=== PATIENT | male | born 2005 | race Caucasian/White ===

== ENCOUNTER 2025-04-02 20:57 | Emergency (ER) | payer OTHER ==
[~2025-04-02] VITALS: Ht 182.9 cm; Wt 75.0 kg
[2025-04-02 21:00] VITALS: PULSE 64; RESP 20; O2SAT 98
[2025-04-02 21:05] VITALS: TEMP 98.5
--- NOTE | 2025-04-02 21:22 | ED.PDOC ---
History of Present Illness HPI Comments 19 year old [employer] male was flown in for the c/c of a Head Injury w/ associated N/ and Photophobia. [employer] Medic states that pt was in the back of a humvee, and upon standing, pt hit the occipital region of his head. Pt is A&Ox4 and notes on weaning full combat gear, including a Helmet. No other associated symptoms, modifiers, recent injuries or sick contacts present at this time. Chief Complaint: Head Injury Time Seen by MD: 21:18 Reviewed Notes: Nurses Notes, Alterations Supervisor Notes, Medications, Allergies Allergies: Coded Allergies: Amoxicillin (Verified Allergy, Unknown, 04/02/25) Information Source: Patient, Emergency Med Personnel Mode of Arrival: EMS Severity: Moderate Timing: Hours Duration: Since onset, Hours Prehospital treatment: 12 Lead EKG, [employer], IVF Past Medical History PAST MEDICAL HISTORY: Denies Surgical History: Denies all surgeries Family History Family History: Unknown Social History Smoker: Non-Smoker Alcohol: Denies ETOH Use Drugs: Denies Drug Use Lives In: Home Constitutional: denies: chills, diaphoresis, fatigue, fever, malaise, sweats, weakness, others EENTM: denies: blurred vision, double vision, ear bleeding, ear discharge, ear drainage, ear pain, ear ringing, eye pain, eye redness, hearing loss, mouth pain, mouth swelling, nasal discharge, nose bleeding, nose congestion, nose pain, photophobia, tearing, throat pain, throat swelling, voice changes, others Respiratory: denies: cough, hemoptysis, orthopnea, SOB at rest, shortness of breath, SOB with excertion, stridor, wheezing, others Cardiovascular: denies: chest pain, dizzy spells, diaphoresis, Dyspnea on exertion, edema, irregular heart beat, left arm pain, lightheadedness, palpitations, PND, syncope, others Gastrointestinal: denies: abdomen distended, abdominal pain, blood streaked bowels, constipated, diarrhea, dysphagia, difficulty swallowing, hematemesis, melena, nausea, poor appetite, poor fluid intake, rectal bleeding, rectal pain, vomiting, others Genitourinary: denies: burning, dysuria, flank pain, frequency, hematuria, incontinence, penile discharge, penile sore, pain, testicle pain, testicle swelling, urgency, others Neurological: reports: headache; denies: dizziness, fainting, left sided numbness, left sided weakness, numbness, paresthesia, pre-existing deficit, right sided numbness, right sided weakness, seizure, speech problems, tingling, tremors, weakness, others Musculoskeletal: denies: back pain, gout, joint pain, joint swelling, muscle pain, muscle stiffness, neck pain, others Integumetry: denies: bruises, change in color, change in hair/nails, dryness, laceration, lesions, lumps, rash, wounds, others Allergic/Immunocompromised: denies: Difficulty Healing, Frequent Infections, Hives, Itching, others Hematologic/Lymphatic: denies: anemia, blood clots, easy bleeding, easy bruising, swollen glands, others Endocrine: denies: excessive hunger, excessive sweating, excessive thirst, excessive urination, flushing, intolerance to cold, intolerance to heat, unexplained weight gain, unexplained weight loss, others Psychiatric: denies: anxiety, bipolar disorder, depression, hopeless, panic disorder, schizophrenia, sleepless, suicidal, others All Other Systems: Reviewed and Negative Physical Exam General Appearance: Moderate Distress, Normal HEENT: Normal ENT Inspection, Pharynx Normal, TMs Normal Neck: Full Range of Motion, Non-Tender, Normal, Normal Inspection Respiratory: Chest Non-Tender, Lungs Clear, No Accessory Muscle Use, No Respiratory Distress, Normal Breath Sounds Cardiovascular: No Edema, No JVD, No Murmur, No Gallop, Normal Peripheral Pulses, Regular Rate/Rhythm Breast Exam: Deferred Gastrointestinal: No Organomegaly, Non Tender, No Pulsatile Mass, Normal Bowel Sounds, Soft Genitalia: Deferred Pelvic: Deferred Rectal: Deferred Extremities: No calf tenderness, Normal capillary refill, Normal inspection, Normal range of motion, Non-tender, No pedal edema Musculoskeletal : Apperance: Normal Neurologic: Alert, No Motor Deficits, Normal Affect, Normal Mood, No Sensory Deficits, Other (Photophobia) Cerebellar Function: Normal Reflexes: Normal Skin: Dry, Normal Color, Warm Lymphatic: No Adenopathy Was a procedure done? Was a procedure done?: No Differential Dx Considerations may include: Differential diagnosis includes but not limited to: intracranial hemorrhage, Bony fracture, dislocation, compartment syndrome, nerve injury, vascular injury and others X-Ray, Labs, Meds, VS Vital Signs Date Time Temp Pulse Resp B/P (MAP) Pulse Ox O2 Delivery O2 Flow Rate FiO2 04/02/25 23:27 66 20 112/80 04/02/25 23:10 66 20 112/80 (91) 98 04/02/25 22:33 63 18 103/69 04/02/25 21:05 98.5 64 20 105/70 (82) 100 98.5 04/02/25 21:00 64 20 98 Room Air* 0 21 04/02/25 21:00 98.5 64 20 105/70 (82) 98 98.5 Current Medications Medications (Trade) Dose Ordered Sig/Geovani Route Start Time Stop Time Status Last Admin Morphine Sulfate 4 mg ONCE ONCE IV 04/02/25 21:30 04/02/25 21:31 DC 04/02/25 22:33 Ondansetron HCl (Zofran) 4 mg ONCE ONCE IV 04/02/25 21:30 04/02/25 21:31 DC 04/02/25 22:33 PATIENT: BRITNEY WELDON ACCT: [id number] UNIT: [id number] : 2005 LOC: ER ROOM / BED: / AGE / SEX: 19 / M ADM STATUS: REG ER SERVICE 22 ORDERING PHYSICIAN: JENNY CONSTANTINO MD PROCEDURE(s): HWOCT - HEAD WITHOUT CONTRAST REASON: head injury with LOC ORDER NUMBER(s): [id number], ACCESSION NUMBER(s): [id number] CLINICAL HISTORY: head injury with LOC TECHNIQUE: Helical imaging carried out from skull base to vertex without intravenous contrast. This exam was performed according to our departmental dose optimization program. Up-to-date CT equipment and radiation dose reduction techniques are utilized as appropriate. CTDIVol: 64.23 mGy DLP: 1137.08 mGy-cm WID: COMPARISON: None FINDINGS: The ventricles and subarachnoid spaces are normal in size and configuration. There is no midline shift or mass effect. The colvin white matter interfaces are maintained. The basal cisterns are patent. There is no evidence of acute intracranial hemorrhage or extra-axial fluid collection. The mastoid air cells and visualized paranasal sinuses are well-aerated. IMPRESSION: No acute intracranial abnormality. Time of 1ST Reevaluation: 21:48 Reevaluation 1ST: Unchanged Patient Education/Counseling: Diagnosis, Treatment, Need For Follow Up Family Education/Counseling: No Family Present SEPSIS Sepsis Screen Physician Orders Head Without Contrast (04/02/25 21:23) Vital Signs Date Time Temp Pulse Resp B/P (MAP) Pulse Ox O2 Delivery O2 Flow Rate FiO2 04/02/25 23:27 66 20 112/80 04/02/25 23:10 66 20 112/80 (91) 98 04/02/25 22:33 63 18 103/69 04/02/25 21:05 98.5 64 20 105/70 (82) 100 98.5 04/02/25 21:00 64 20 98 Room Air* 0 21 04/02/25 21:00 98.5 64 20 105/70 (82) 98 98.5 Medications Medications Dose Ordered Sig/Geovani Route Start Time Stop Time Status Last Admin Dose Admin Morphine Sulfate 4 mg ONCE ONCE IV 04/02/25 21:30 04/02/25 21:31 DC 04/02/25 22:33 Ondansetron HCl 4 mg ONCE ONCE IV 04/02/25 21:30 04/02/25 21:31 DC 04/02/25 22:33 Departure 1 Departure Time of Disposition: 23:30 Impression: Primary Impression: Closed head injury with concussion Disposition: 01 HOME / SELF CARE / HOMELESS Condition: Stable Discharged With: Self Critical Care Note Critical Care Time?: No Stability Stability form required: No Heart Score Heart Score: Heart Score Response (Comments) Value History N/A 0 EKG N/A 0 Age N/A 0 Risk Factors N/A 0 Troponin N/A 0 Total 0 I personally scribed for JENNY CONSTANTINO MD ([email or web address]) on 04/02/25 at 21:21. Electronically submitted by Archie Zamudio ([email or web address]). I personally scribed for JENNY CONSTANTINO MD ([email or web address]) on 04/02/25 at 22:45. Electronically submitted by Archie Zamudio ([email or web address]). JENNY CONSTANTINO MD Apr 02, 2025 21:21
--- NOTE | 2025-04-02 22:21 | DVH ---
CLINICAL HISTORY: head injury with LOC TECHNIQUE: Helical imaging carried out from skull base to vertex without intravenous contrast. This e xam was performed according to our departmental dose optimization program. Up-to-date CT equipment an d radiation dose reduction techniques are utilized as appropriate. CTDIVol: 64.23 mGy DLP: 1137.08 mGy-cm WID: COMPARISON: None FINDINGS: The ventricles and subarachnoid spaces are normal in size and configuration. There is no midline jim ft or mass effect. The colvin white matter interfaces are maintained. The basal cisterns are patent. Th ere is no evidence of acute intracranial hemorrhage or extra-axial fluid collection. The mastoid air cells and visualized paranasal sinuses are well-aerated. IMPRESSION: No acute intracranial abnormality.
[2025-04-02] MEDS: MORPHINE SULFATE 4 MG/ML SYR/VIAL IV ONE (22:33)
[2025-04-02] MEDS: ONDANSETRON HCL 4 MG/2 ML VIAL IV ONE (22:33)
[2025-04-02 23:10] VITALS: O2SAT 98
[2025-04-02 23:27] VITALS: BP 112/80; PULSE 66; RESP 20
== END 2025-04-02 23:54 | disposition home or self-care (01) ==
LOC: ER 20:57 → EDBD 20:57 → ER 23:54
DX: S06.0X0A Concussion without loss of consciousness, initial encounter (principal); Z88.1 Allergy status to other antibiotic agents; X58.XXXA Exposure to other specified factors, initial encounter; Y93.89 Activity, other specified; Y92.89 Other specified places as the place of occurrence of the external cause; Y99.8 Other external cause status
CPT/HCPCS: 70450; 96374; 96375; 99285; J2270; J2405